=== PATIENT | male | born 2000 | race Hispanic/Latino ===

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

== ENCOUNTER 2023-06-02 09:52 | Emergency (ER) | payer OTHER, SELFPAY ==
[2023-06-02] MEDS ORDERED: Ibuprofen 800 MG TAB ONE (10:59)
== END 2023-06-02 11:32 | disposition home or self-care (01) ==
LOC: ERS 09:52
DX: S93.401A Sprain of unspecified ligament of right ankle, initial encounter (principal); W19.XXXA Unspecified fall, initial encounter; Y93.01 Activity, walking, marching and hiking

== ENCOUNTER 2023-06-08 18:11 | Emergency (ER) | payer OTHER, SELFPAY | END 2023-06-08 20:30 | disposition home or self-care (01) | LOC: ERS 18:11 | DX: S93.409A Sprain of unspecified ligament of unspecified ankle, initial encounter (principal); W19.XXXA Unspecified fall, initial encounter ==